=== PATIENT | female | born 1955 | race American Indian/Alaskan Native ===

== ENCOUNTER 2018-09-14 11:15 | Emergency (ER) | payer OTHER ==
--- NOTE | 2018-09-14 11:27 | Emergency Department Report ---
ED CPR HPI - General Stated Complaint: CARDIAC ARREST Time Seen by Provider: 09/14/18 11:23 Source: EMS Mode of arrival: Stretcher Limitations: Other (CPR in progress) - History of Present Illness Initial Comments: This is a 63 year old female with a history of hypertension. Medics state she was last seen by her family about half an hour prior to her being found unresponsive. Medics arrived on scene. Patient was intubated. She received 4 rounds of epinephrine and bicarbonate. There was no return of spontaneous circulation. She has had rated and one half hour of CPR with benefit. She arrives at this facility with no signs of life. I spoke to the family of the patient her and her sister. Her sisters nurse. She states that she was notified that the patient was unresponsive. When she arrived the EMS had already begun CPR. She states that she had admission to [facility] early July and was found to be in CHF. She had a bronchoscopy at that time that was negative. The sister states that she had sent her a text that she was short of breath on Saturday of last week. The states that the patient was experiencing shortness of breath which had worsened this morning and eventually became unresponsive. Complaint: found unresponsive -: minute(s) (greater than a half hour of CPR ) Place: home Initial Findings in the Field: unresponsive, no pulse ROSC in the Field: No Associated Injuries: No Treatments Prior to Arrival: intubation, epinephrine mgs #, sodium bicarbonate ED Review of Systems ROS: Stated complaint: CARDIAC ARREST Other details as noted in HPI Comment: Unobtainable due to pts medical conditions ED Past Medical Hx - Past Medical History Hx Hypertension: Yes - Social History Smoking Status: Unknown if ever smoked ED Physical Exam - General Limitations: Physical Limitation General appearance: obese (morbidly) - Head Head exam: Present: atraumatic - Eye Pupils: Present: other (fixed and dilated) - ENT ENT exam: Present: normal exam - Neck Neck exam: Present: normal inspection - Respiratory Respiratory exam: Present: normal lung sounds bilaterally (breath sounds present with ambu bag assist) ED Course - Reevaluation(s) Reevaluation #1: Doppler exam was performed. There was no signal. The patient had a few bradycardic complexes. Further resuscitative efforts were deemed to be futile. Patient was pronounced. 09/14/18 11:39 09/14/18 11:40 The family was counseled. Critical care attestation.: If time is entered above; I have spent that time in minutes in the direct care of this critically ill patient, excluding procedure time. ED Disposition Clinical Impression: Cardiac arrest Disposition: DC-20 Is pt being admited?: No Does the pt Need Aspirin: No Condition: Stable Time of Disposition: 11:40
== END 2018-09-14 15:28 ==
LOC: ED 11:15
DX: I46.9 Cardiac arrest, cause unspecified (principal)